=== PATIENT | male | born 1995 | race African-American/Black ===

== ENCOUNTER 2017-01-28 22:28 | Emergency (ER) | payer BC ==
[2017-01-28 22:55] LABS: BASOPHILS 0.2 % (0-2); EOSINOPHILS 1.1 % (0-7); HEMATOCRIT 39.6 % (42.0-54.0); HEMOGLOBIN 13.5 g/dL (13.5-17.5); IMMATURE GRANULOCYTES 0.2 % (0-5); LYMPHOCYTES 32.1 % (15-50); MCH 28.7 pg (26.0-34.0); MCHC 34.1 g/dL (31.0-37.0); MCV 84.3 fL (80.0-100.0); MEAN PLATELET VOLUME 10.1 fL (7.4-10.4); MONOCYTES 11.3 % (2-11); NEUTROPHILS 55.1 % (40-80); PLATELET COUNT 162 10x3/uL (130-400); RDW 12.6 % (11.5-14.5); WBC 5.5 10x3/uL (4.8-10.8)
[2017-01-28 23:07] LABS: ALBUMIN 3.9 g/dL (3.4-5.0); ANION GAP 15.7 mmol/L (8-16); BILIRUBIN - TOTAL 0.1 mg/dL (0.2-1.3); CALCIUM 8.6 mg/dL (8.5-10.1); CARBON DIOXIDE 25.8 mmol/L (21.0-32.0); CREATININE - SERUM 1.4 mg/dL (0.6-1.3); POTASSIUM - SERUM 3.5 mmol/L (3.5-5.1); PROTEIN - SERUM 7.9 g/dL (6.4-8.2)
[2017-01-29 01:39] LABS: APPEARANCE CLEAR (CLEAR); BILIRUBIN NEGATIVE (NEGATIVE); COLOR YELLOW (YELLOW); GLUCOSE NEGATIVE (NEGATIVE); KETONE NEGATIVE (NEGATIVE); LEUKOCYTE ESTERASE NEGATIVE (NEGATIVE); NITRITE NEGATIVE (NEGATIVE); PROTEIN NEGATIVE (NEGATIVE); SPECIFIC GRAVITY 1.015 (1.005-1.020); UROBILINOGEN NORMAL (NORMAL)
== END 2017-01-29 02:10 | disposition home or self-care (01) ==
LOC: D.ER 22:28
PROVIDERS: Emergency Medicine
DX: R10.31 Right lower quadrant pain (principal); I88.0 Nonspecific mesenteric lymphadenitis

== ENCOUNTER 2019-02-08 08:29 | Day surgery (SDC) | payer BC ==
[~2019-02-08] VITALS: Ht 188 cm; Wt 104.8 kg
[2019-02-08 09:24] VITALS: BP 120/67; Ht 188 cm; Wt 104.8 kg
[2019-02-08] MEDS ORDERED: PERCOCET 7.5/321 TAB PO (15:19)
[2019-02-08] MEDS ORDERED: KEFLEX500 MG PO (15:20)
[2019-02-08] MEDS ORDERED: TORADOL10 MG PO (15:20)
--- NOTE | 2019-02-11 12:01 | OP ---
PATIENT NAME: RAKAN SKINNER MEDICAL RECORD: [id number] :95 [facility] AD[facility]ION DATE: SURGEON: FELIZ DIEHL DO DATE OF OPERATION: 02/08/2019 PROCEDURE PERFORMED: Left knee ACL reconstruction with [id number]-[id number] autograft and a lateral meniscal repair. PREOPERATIVE DIAGNOSIS: Left knee anterior cruciate ligament rupture and lateral meniscal tear. POSTOPERATIVE DIAGNOSIS: Left knee anterior cruciate ligament rupture and lateral meniscal tear. INDICATIONS: Mr. Skinner is a 23-year-old male who was playing basketball and sustained an ACL rupture and had an MRI, which showed that with meniscal tear. I informed him of the risks including infection, bleeding, damage to nerves and vessels, need for further surgery, failure of the graft, continued pain, pain with kneeling, blood clots, and even and he signed the consent. SURGEON: Feliz Diehl DO DESCRIPTION OF PROCEDURE: The patient was taken to the operative suite after given a block by anesthesia. I was assisted by Brianna Reilly and Avel Acevedo. Brianna Reilly is a certified business banking sales assistant. The patient was given general anesthetic and LMA was placed. He was given 2 grams of Ancef. The left lower extremity was then prepped and draped in sterile fashion. Timeout was performed. Everyone was in agreement with the correct side, site, patient, and procedure. The incision then began over the medial knee. Careful dissection was made down to the patella and patellar tendon and the central cm of the patella and patellar tendon 25 mm bone block was then taken a cm wide out of the patella and the tibial tubercle, right out at the center. This was then taken to the back table and shaped up for the procedure. Some graft was used to put in the voids of the patella and the tibial tubercle. The paratenon and the tendon were then closed with #1 Vicryl. The tendon was a #1 Vicryl in the paratenon with 2-0 Vicryl and then a lateral portal was established with an 11-blade scalpel. The scope was begun. The medial portal was then established using an 18-gauge spinal needle and 11-blade scalpel. No loose body was seen in the suprapatellar pouch, medial or lateral gutters. The medial compartment was free of debris. There was no medial meniscal tear seen. The ACL was noted be torn. The lateral meniscus was then noted to be torn in the posterior horn. A Fast-Fix device was then used to fix the lateral meniscal tear. The notch was then prepared in the tunnel and the femur was drilled. Nitinol wire was passed through that. The tibial tunnel was then drilled and using a N + 7 rule, the tendon was a 60. We had a 67 degree tunnel on the tibia. The graft was then passed up into the femoral tunnel. Once it had reached a stopping point, the graft was too long and the bone block on the tibial side was out of the tibial tunnel. We then attempted to use an interference screw, used up to a 12 and this did not get any fixation. The bone block was then cut off and we are going to use a button to tie over it. The tendon then ruptured where we had sutured it and we had to resuture the tendon up in the tunnel. This was then grabbed. A Krackow stitch was made up and down on both sides of the tendon and was pulled taut and the bone plug that was cut off earlier was pushed up into the tibial tunnel and then the graft was tied over a button using 4 strands of suture. This had very good fixation and the anterior drawer was negative. The Des OPERATIVE REPORT [id number] RAKAN SKINNER was negative as well on exam. There was no pivot shifting. The tourniquet had been up throughout the procedure and was let down and was up for a total of 167 minutes with going up and down 120 minutes the first time and then 47 the second time. The sites were then closed with 2-0 Vicryl in inverted interrupted fashion, 4-0 Monocryl on the portal sites and on the lateral femur 2-0 Vicryl. A 4-0 Monocryl was then used on the scope portals. A ZipLine was then placed on the 2 incisions on the anterior tibia, then covered it with Adaptic, 4 x 4s, ABD, Webril, Tim wrap, and LEA stockings was placed up to the knee. He was placed in a hinged knee brace. He was awakened and taken to recovery in stable condition. Blood loss approximately 100 mL. COMPLICATIONS: None. TRANSINT:[id number] Voice Confirmation ID: [id number] DOCUMENT ID: [id number] FELIZ DIEHL DO at 1201 CC: [id number] DICTATION DATE: 02/08/19 1527 STEAM SETTER: 02/09/19 0206 [facility] 02/08/19 [place] [id number] [place] [address]
[2019-04-02] MEDS ORDERED: PERCOCET 5-3251 TAB PO (16:40)
[2019-04-02] MEDS ORDERED: TORADOL10 MG PO (16:40)
== END 2019-02-08 18:05 | disposition home or self-care (01) ==
LOC: D.OPS 08:29 → D.PAN 08:45 → D.OPS 18:05
PROVIDERS: ATTEND Orthopaedic Surgery
DX: S83.512A Sprain of anterior cruciate ligament of left knee, initial encounter (principal); S83.242A Other tear of medial meniscus, current injury, left knee, initial encounter; X58.XXXA Exposure to other specified factors, initial encounter

== ENCOUNTER 2019-04-03 06:11 | Day surgery (SDC) | payer BC ==
[2019-04-02 13:35] VITALS: BP 132/66; BMI 30.6
[~2019-04-03] VITALS: Ht 188 cm; Wt 111.1 kg
[~2019-04-03 06:11] MED LIST: KEFLEX500 MG PO; PERCOCET 5-3251 TAB PO; PERCOCET 7.5/321 TAB PO; TORADOL10 MG PO
[2019-04-03 06:47] VITALS: BP 116/69; Ht 188 cm; Wt 111.1 kg
--- NOTE | 2019-04-03 13:17 | OP ---
PATIENT NAME: RAKAN SKINNER MEDICAL RECORD: [id number] :95 LOCATION:[facility] ADMISSION DATE: SURGEON: FELIZ DIEHL DO DATE OF OPERATION: 04/03/2019 PROCEDURE PERFORMED: Left knee arthroscopy with lysis of adhesions and manipulation under anesthesia. 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 INDICATIONS: Mr. Skinner is a 23-year-old male who underwent ACL reconstruction with BTB autograft about 2 months ago. He had not achieved full extension and had almost something blocking him. He had of all the signs and symptoms of a cyclops lesion, which is a scar tissue that forms in the knee and prevents full extension. He got to approximately lacking 20 degrees of extension. I informed him that we go in and might take down the adhesions and then manipulate him. He is aware of the risks including fracture, bleeding, damage to nerves and vessels, need for further surgery, blood clots and even . He signed the consent. SURGEON: Feliz Diehl DO DESCRIPTION OF PROCEDURE: The patient was taken to the operative suite, laid in supine position, given general anesthetic, 2 grams Ancef. Hohmann was placed and the left lower extremity was then prepped and draped in sterile fashion. Timeout was performed. Everyone was in agreement as to the correct side, site, patient and procedure. We then did the arthroscopy portion starting with the lateral portal with an 11-blade scalpel and trocar entered into the knee. As soon as the camera was entered into the knee there was a large amount of scar tissue seen especially at the anterior notch. A medial portal was then established with an 18-gauge spinal needle, 11-blade scalpel and a shaver was brought in as well as a burner and resected all the scar tissue. Once that was resected, especially out of the notch, the patient achieved full extension. The tourniquet was inflated and was up for 18 minutes. It was then let down and the excess wire was removed. We suctioned, withdrew the camera, trocar and the sites were closed with 4-0 Monocryl in inverted interrupted fashion. Steri-Strips, Adaptic, 4 x 4's, ABD, Webril and Tim wrap and LEA hose stockinette were placed on the patient. He was awakened and taken to recovery in stable condition. ESTIMATED BLOOD LOSS: Minimal. COMPLICATIONS: None. TRANSINT:[id number] Voice Confirmation ID: [id number] DOCUMENT ID: [id number] OPERATIVE REPORT [id number] RAKAN SKINNER MICHAEL D, DO at 1317 CC: [id number] DICTATION DATE: 04/03/19 1103 TRAFFIC MANAGER: 04/03/19 [address] [id number]
== END 2019-04-03 13:25 | disposition home or self-care (01) ==
LOC: D.OPS 06:11
PROVIDERS: ATTEND Orthopaedic Surgery
DX: M25.562 Pain in left knee (principal); M23.8X2 Other internal derangements of left knee